=== PATIENT | female | born 1955 | race Caucasian/White ===

== ENCOUNTER → 2024-01-09 | Outpatient (CLI) | payer MEDICARE ==
--- NOTE | 2024-01-09 12:17 | CT ---
EXAMINATION TYPE: CT sinus wo con CT DLP: 509 mGycm, Automated exposure control for dose reduction was used. DATE OF EXAM: 01/09/2024 11:59 AM COMPARISON: None. CLINICAL INDICATION:Female, 68 years old with history of J32.9 CHRONIC SINUSITIS, UNSPECIFIED; PHH, c hronic sinusitis x 7 years, fullness in ears CONTRAST: None. TECHNIQUE: Multiple thin axial images were obtained through the paranasal sinuses without the use of IV contrast. Additional coronal and sagittal reformatted images were submitted for evaluation. FINDINGS: Frontal sinuses: Normally developed. Both sinuses are completely opacified. Frontal Recess: Opacified Maxillary Sinuses: Postsurgical changes of the bilateral medial padilla. Moderate mucosal thickening bi laterally. Maxillary Infundibula([facility]): Postsurgical changes bilaterally. There is opacification bilaterally. Ethmoid sinuses: Normally developed. Near complete opacification of both ethmoid sinuses. Ethmoidal n otch: Protected and abutting the lateral lamina. Sphenoid sinuses: Normally developed. Near-complete opacification of right sphenoid sinus with modera te mucosal thickening of the left sphenoid sinus. There is sellar sphenoid sinus pneumatization witho ut evidence of dehiscence. No dehiscence of carotid canal. No evidence of optic nerve dehiscence wit hin the sphenoid sinus. Sphenoethmoidal recesses: Clear. Nasal septum: Within normal limits.. Nasal Turbinates: Surgical changes. Mastoid air cells & middle ears: Opacification of both mastoid air cells with left greater than right . The middle ears are grossly unremarkable. Modified Soft tissues & Brain: Partially seen without gross abnormality. Bilateral aphakia. Other: Cribriform plate demonstrates symmetric Keros classification type 2 cribriform plate. No evidence of bony dehiscence of skull base. Lamina papyracea is intact without evidence of remote orbital fracture or orbital prolapse into the e thmoid sinus. IMPRESSION: 1. Moderate to severe paranasal sinus mucosal disease as described above with postsurgical changes. 2. The ostiomeatal units, frontonasal and sphenoethmoidal recesses are opacified. 3. Bilateral mastoid effusions.
== END | disposition home or self-care (01) ==
LOC: RADCTMAIN 11:32
PROVIDERS: ATTEND Otolaryngology
DX: J32.9 Chronic sinusitis, unspecified
CPT/HCPCS: 70486

== ENCOUNTER 2024-02-13 10:33 | Day surgery (SDC) | payer MEDICARE ==
[~2024-02-13 10:33] MED LIST: HYDROmorphone 0.5 MG/0.5 ML SYRINGE IVP PRN; LIDOCAINE 1% (10MG/ML) FOR IV START INTRADERMA PRN; MIDAZOLAM 2 MG/2 ML VIAL IV PRN; fentaNYL (PF) 50 MCG/ML 2 ML AMP IVP PRN
[2024-02-13] MEDS: OXYMETAZOLINE 0.05% NASL SPRAY 1 SPRAY BOTTLE EA NOSTRIL PRN (11:12)
[2024-02-13] MEDS: DEXAMETHASONE SOD PHOSPHATE 4 MG/ML 1 ML VIAL IV ONE (11:30)
[2024-02-13] MEDS: ONDANSETRON 4 MG/2 ML VIAL IVP ONE (11:30)
[2024-02-13] MEDS: FAMOTIDINE 20 MG/2 ML VIAL IV PRN (11:30)
[2024-02-13] MEDS: LACTATED RINGERS 1,000 ML IV SCH (11:31)
[2024-02-13] MEDS: IV FLUID CONTINUATION 1,000 ML IV ONE ×2 (11:40→11:53)
[2024-02-13] MEDS ORDERED: SUCCINYLCHOLINE CHLORIDE 200 MG/10 ML VIAL IV ONE (11:53)
[2024-02-13] MEDS ORDERED: LIDOCAINE 4% LTA KIT (4 ML) TOPICAL ONE (11:53)
[2024-02-13] MEDS ORDERED: PROPOFOL 10 MG/ML 20 ML VIAL IV ONE (11:53)
[2024-02-13] MEDS ORDERED: WATER FOR INJECTION, STERILE 10 ML VIAL IV ONE (11:53)
[2024-02-13] MEDS ORDERED: LIDOCAINE 1% INJ 10MG/ML (20 ML MDV) ONE (11:53)
[2024-02-13] MEDS ORDERED: ePHEDrine 50 MG/ML 1 ML VIAL ONE (11:53)
[2024-02-13] MEDS ORDERED: PHENYLEPHRINE 10 MG/ML VIAL ONE (11:53)
[2024-02-13] MEDS ORDERED: MIDAZOLAM 2 MG/2 ML VIAL ONE (11:53)
[2024-02-13] MEDS ORDERED: fentaNYL (PF) 50 MCG/ML 2 ML AMP ONE (11:53)
[2024-02-13] MEDS ORDERED: GLYCOPYRROLATE 0.2 MG/ML 2 ML VIAL ONE (11:53)
[2024-02-13] MEDS: BACITRACIN ZINC 500 UNIT/GM OINT 28.4 GM TUBE TOPICAL ONE ×3 (12:05→12:51)
[2024-02-13] MEDS: LIDOCAINE 1%-EPI 1:100,000 20 ML VIAL SUBMUCOSAL ONE ×2 (12:05→12:14)
[2024-02-13] MEDS: LACTATED RINGERS 1,000 ML IV ONE (12:51)
--- NOTE | 2024-02-13 13:04 | P.OP ---
Date of Procedure: 02/13/24 Preoperative Diagnosis: chronic sinusitis Postoperative Diagnosis: same Procedure(s) Performed: bilateral revision endoscopic sinus surgery including bilateral maxillary antrostomy with removal of tissue from maxillary sinuses bilateral anterior and posterior ethmoidectomy bilateral frontal sinus exploration with removal of tissue from frontal sinuses and bilateral sphenoidotomy with removal of tissue from the sphenoid sinuses Anesthesia: SALVADOR Surgeon: Hamlet Trevizo Estimated Blood Loss (ml): 10 Pathology: other (sinus contents) Condition: stable Disposition: PACU Indications for Procedure: this is a 68-year-old white female whose had remote history of septoplasty and endoscopic sinus surgery elsewhere who did well for several years but has had recurrent symptoms and CT of the sinuses shows evidence of chronic sinusitis Operative Findings: maxillary ostia were patent but narrow. There is mucosal thickening quite significant throughout the maxillary ethmoid frontal and sphenoid sinuses. There was purulent drainage and crusting in the left and right middle meatus and maxillary sinuses mostly on the left. There were a few residual anterior and posterior ethmoid air cells with mucosal thickening throughout these, the sphenoid and frontal ostia were obstructed Description of Procedure: The patient was brought into the operative suite and placed in a supine position. The patient underwent induction of general anesthesia with oral endotracheal intubation without difficulty. The patient was prepped and draped in the usual aseptic fashion with the orbits in the operating field for monitoring to the case and the computed tomography scan was on the computer screen for review throughout the case. 1% lidocaine with 1 :100,000 epinephrine was infused submucosally into the lateral nasal wall and anterior tips of the middle turbinates- there is evidence of partial middle turbinectomy bilaterally from her previous surgery Full 0 endoscopic examination is performed bilaterally. Beginning on the left, the middle turbinate was medialized. The maxillary ostium was located with a ballpoint probe and an infundibulotomy was performed followed by uncinectomy. The maxillary antrostomy was enlarged at the expense of the anterior and posterior fontanelle taking care anteriorly not to injure the lacrimal bone. The maxillary sinus was evaluated with 30 and 70 endoscope .[Abnormal appearing tissue was removed from the maxillary sinus]. culture was performed from the left maxillary sinus Anterior and posterior ethmoidectomy were then performed from anterior to posterior to the level of the skull base. The roof of the anterior ethmoid air cells were then cleaned from posterior to anterior using up-biting Blakesley forceps. frontal sinusotomy was performed utilizing curved suction and giraffe forceps The frontal sinus was then explored with 30 endoscope.[Abnormal tissue was removed from the frontal sinus]. frontal sinusotomy was performed with straight suction and straight Blakesley forceps The sphenoid sinus was then explored with 0 endoscope.[Abnormal tissue was removed from the sphenoid sinus]. Attention was then turned to the right where the procedures were followed as they had been on the left including right maxillary antrostomy with removal of tissue from the maxillary sinus, anterior posterior ethmoidectomy frontal sinusotomy and sphenoidotomy call with exploration and removal of tissue [Nasopore nasal dressing was placed in the middle meatus bilaterally under direct visualization]. The patient was suctioned in oral gastric fashion and was allowed to emerge from general anesthesia having tolerated procedure well and was extubated in the operating suite and transferred to the postoperative recovery area in satisfactory condition.
[2024-02-13 13:14] VITALS: TEMP 97.8
[2024-02-13 14:13] VITALS: RESP 18
[2024-02-13 14:17] VITALS: BP 143/79; PULSE 81
== END 2024-02-13 15:03 | disposition home or self-care (01) ==
LOC: OR 10:33
PROVIDERS: ATTEND Otolaryngology
CPT/HCPCS: 87070; 87075; 87077; 87102; 87186; 87205; 88305